=== PATIENT | male | born 1950 | race Caucasian/White ===

== ENCOUNTER 2021-10-03 15:48 | Emergency (ER) | payer OTHER ==
[2021-10-03] MEDS ORDERED: Lidocaine 1% 5 ML VIAL INJECT ONE (16:34)
[2021-10-03] MEDS ORDERED: Bacitracin Oint 1 GM U/D Packet TOP ONE (16:34)
== END 2021-10-03 17:30 | disposition home or self-care (01) ==
LOC: JP.ED 15:48
DX: S61.215A Laceration without foreign body of left ring finger without damage to nail, initial encounter (principal); W23.1XXA Caught, crushed, jammed, or pinched between stationary objects, initial encounter
CPT/HCPCS: 12002; 99281; 99282